=== PATIENT | female | born 1980 | race African-American/Black ===

== ENCOUNTER 2020-08-12 10:43 | Observation (INO) ==
[2020-08-12] MEDS ORDERED: SODIUM CHLORIDE 0.9% 1,000 ML IV STA ×2 (13:13→14:40)
[2020-08-12 13:38] LABS: Basophils # 0.1 10*3/uL (0.0-0.2); Basophils % 0.6 % (0.0-0.8); Eosinophils # 0.2 10*3/uL (0.0-0.87); Eosinophils % 1.8 % (0.00-10.9); Hematocrit 42.6 VOL% (35.7-47.0); Immature Granulocytes % 0.3 %; Immature Granulocytes Absolute 0.03 #; Lymphocytes # 2.7 10*3/uL (1.4-4.0); Mean Corpuscular HGB Conc 30.5 GM/DL (32-36); Mean Corpuscular Volume 79.2 FL (87-102); Mean Platelet Volume 11.8 FL (9.6-12.0); Monocytes % 9.5 % (1.7-12.7); Neutrophils % 59.8 % (38.7-73.9); Platelet Count 313 T/CUMM (130-400); Red Blood Count 5.38 MC/CUMM (3.8-5.5); White Blood Count 9.7 T/CUMM (4-12)
[2020-08-12 13:56] LABS: Albumin 3.4 G/DL (3.4-5.0); Bilirubin,Total 0.6 MG/DL (0.2-1.0); Calcium 9.1 MG/DL (8.5-10.1); Osmolality,Calculated 276.8 MOS/KG (273-304); Potassium 4.2 MMOL/L (3.5-5.1); Total Protein 7.8 G/DL (5.0-7.5)
[2020-08-12] MEDS ORDERED: INSULIN REGULAR 100 UNIT/ML IV ONE (14:39)
[2020-08-12] MEDS ORDERED: GLUCAGON 1 MG VIAL IM PRN (14:51)
[2020-08-12] MEDS ORDERED: ONDANSETRON 4 MG/2 ML VIAL IV PRN (14:51)
[2020-08-12] MEDS ORDERED: DEXTROSE 50% 25 GM/50 ML VIAL IV PRN (14:51)
[2020-08-12] MEDS: INSULIN REGULAR 100 UNIT/ML SUBCUT SCH ×2 (17:48→23:49)
[2020-08-12] MEDS: SODIUM CHLORIDE 0.9% 1,000 ML IV SCH ×2 (17:48→21:40)
[2020-08-13] MEDS: SODIUM CHLORIDE 0.9% 1,000 ML IV SCH ×2 (00:30→04:20)
[2020-08-13 05:28] LABS: Basophils # 0.1 10*3/uL (0.0-0.2); Basophils % 0.9 % (0.0-0.8); Eosinophils # 0.2 10*3/uL (0.0-0.87); Eosinophils % 2.6 % (0.00-10.9); Hematocrit 35.8 VOL% (35.7-47.0); Hemoglobin 11.2 GM/DL (12.0-16.0); Immature Granulocytes % 0.3 %; Immature Granulocytes Absolute 0.02 #; Mean Corpuscular HGB Conc 31.3 GM/DL (32-36); Mean Corpuscular Volume 78.2 FL (87-102); Mean Platelet Volume 11.7 FL (9.6-12.0); Monocytes % 11.4 % (1.7-12.7); Neutrophils % 46.8 % (38.7-73.9); Platelet Count 258 T/CUMM (130-400); Red Blood Count 4.58 MC/CUMM (3.8-5.5); Red Cell Distribution Width 15.8 % (9.3-17.3)
[2020-08-13 05:51] LABS: Albumin 2.6 G/DL (3.4-5.0); Bilirubin,Total 0.8 MG/DL (0.2-1.0); Calcium 7.9 MG/DL (8.5-10.1); Osmolality,Calculated 281.1 MOS/KG (273-304); Potassium 3.2 MMOL/L (3.5-5.1); Total Protein 6.1 G/DL (5.0-7.5)
[2020-08-13] MEDS: INSULIN REGULAR 100 UNIT/ML SUBCUT SCH ×2 (06:11→11:41)
[2020-08-13] MEDS ORDERED: POTASSIUM CHLORIDE 20 MEQ TABLET PO ONE (09:00)
[2020-08-13] MEDS ORDERED: INSULIN NPH 100 UNIT/ML SUBCUT SCH ×2 (09:00→16:30)
[2020-08-13 11:33] VITALS: BP 115/74
[2020-08-13] MEDS ORDERED: INSULIN GLARGINE 100 UNIT/ML SUBCUT SCH (12:00)
[2020-08-13] MEDS ORDERED: GLIMEPIRIDE 2 MG TABLET PO SCH (17:00)
== END 2020-08-13 13:02 | disposition home or self-care (01) ==
LOC: N.EDINP 10:43 → N.ED 10:43 → N.5E 17:19
PROVIDERS: ADMIT Internal Medicine; ATTEND Internal Medicine